=== PATIENT | female | born 1955 | race Caucasian/White ===

== ENCOUNTER 2023-11-11 12:22 | Outpatient (CLI) | payer MEDICARE, SELFPAY ==
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
== END 2023-11-11 12:23 | disposition home or self-care (01) ==
LOC: ANHIMG 12:32
PROVIDERS: Visit Provider Physician Assistant
DX: M54.50 Low back pain, unspecified (principal)
CPT/HCPCS: 74018